=== PATIENT | female | born 1995 | race Caucasian/White ===

== ENCOUNTER 2019-02-23 01:26 | Inpatient (IN) ==
[2019-02-23] MEDS ORDERED: Haloperidol Lactate 5 MG/ML VIAL IM PRN (01:37)
[2019-02-23] MEDS ORDERED: MOM Conc 10 ML UD.LIQ PO PRN (01:37)
[2019-02-23] MEDS ORDERED: Mag Hydrox/Al Hydrox/Simeth 30 ML UDC PO PRN (01:37)
[2019-02-23] MEDS ORDERED: hydrOXYzine pamoate 25 MG CAPSULE PO PRN (01:37)
[2019-02-23] MEDS ORDERED: traZODone 50 MG TABLET PO PRN (01:37)
[2019-02-23] MEDS ORDERED: *HR* LORazepam 1 MG TABLET PO PRN (01:37)
[2019-02-23] MEDS ORDERED: Ibuprofen 400 MG TABLET PO PRN (01:37)
[2019-02-23] MEDS ORDERED: *HR* LORazepam 2 MG/ML VIAL IM PRN (01:37)
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
[2019-02-23] MEDS ORDERED: Preparation H Ointment 30 GM TUBE TP PRN (18:12)
[2019-02-23] MEDS: traZODone 50 MG TABLET PO SCH (21:01)
--- NOTE | 2019-02-24 10:34 | Psychiatry Progress Note ---
Date of Encounter: 02/24/19 Time of Encounter: 10:30 Subjective Interval history: Client reports feeling much better today. Attended groups yesterday and was an active participant. States she really needs to work on "self-love" and that was something she intended to focus on today. Client did say yesterday that she does not like herself very much so it is good that she is already identifying this as something to work on in her therapy groups. Mood is definitely better today. Smiling. No tearfulness. Denying SI today. Still does not have any real plan for when she leaves but client did say staff could reach out to her boyfriend's mother today. Client denies having any friends/family that could offer support beyond her boyfriend's mother. Will try and contact boyfriend's mother to determine level of support for client and her two daughters. If everything works out client could potentially be discharged tomorrow. Sleeping and eating well. Tolerating meds. Feels and looks better. Review of Systems Constitutional: Denies: fever, chills, weakness, weight change Eyes: Denies: eye pain, vision change Ears, Nose, Throat: Denies: ear pain, throat pain, dental pain, hearing loss, congestion Cardiovascular: Denies: chest pain, palpitations, dyspnea on exertion Respiratory: Denies: cough, dyspnea, wheezes Gastrointestinal: Denies: abdominal pain, nausea, vomiting, diarrhea, constipation Musculoskeletal: Denies: joint swelling, joint pain Neurological: Denies: headache, weakness, numbness, memory loss Results - Vital Signs Vital Signs: Temp Pulse Resp BP Pulse Ox 98.2 F 76 16 119/78 100 02/24/19 09:00 02/24/19 09:00 02/24/19 09:00 02/24/19 09:00 02/24/19 09:00 Assessment and Plan (1) Major depress dis, severe Current visit: Yes Status: Acute Plan: Continue hospitalization, Close observation, Suicide Precautions per unit protocol, Encourage participation in unit milieu, Group Therapy, Monitor sleep, Monitor appetite Risks, benefits, side effects, alternatives discussed w/pt: Yes Patient agreeable to treatment: Yes (2) Generalized anxiety disorder Current visit: Yes Status: Acute Plan: Continue hospitalization, Close observation, Suicide Precautions per unit protocol, Encourage participation in unit milieu, Group Therapy, Monitor sleep, Monitor appetite Risks, benefits, side effects, alternatives discussed w/pt: Yes Patient agreeable to treatment: Yes Consult Discharge Plan - Plan Referrals: NONE,PCP [Primary Care Provider] - Psychiatry Exam - Constitutional Vitals: Temp Pulse Resp BP Pulse Ox 98.2 F 76 16 119/78 100 02/24/19 09:00 02/24/19 09:00 02/24/19 09:00 02/24/19 09:00 02/24/19 09:00 General appearance: age & developmentally appropriate, well-groomed, well- nourished - Musculoskeletal Gait: normal Station: relaxed Strength & Tone: normal for patient - Psychiatric Patient Orientation: Yes Person, Yes Time, Yes Place Level of alertness: Alert Behavior: calm, cooperative Psychomotor activity: Normal Eye Contact: Maintains Eye Contact Mood Description: Depressed, Anxious Affect description: full range Speech Volume: Normal Speech pattern: normal rate, normal rhythm, normal tone, fluent, spontaneous Language & Vocabulary: consistent with education Thought Process: Linear Thought Content: No Suicidal ideation, No Homicidal ideation, No Overt delusions Perceptual Disturbances: No Auditory hallucinations, No Visual hallucinations Attention Span Ability: Capable of Focused Attention Memory Description: Grossly Intact Patient Reliability: Reliable Historian Fund of knowledge: Yes abstraction ability, Yes aware of current events Intelligence Estimate: Average Judgment: Fair Insight: Partial
[2019-02-24] MEDS: traZODone 50 MG TABLET PO SCH (20:55)
[2019-02-25 08:59] VITALS: BP 117/78
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
== END 2019-02-25 14:40 | disposition home or self-care (01) | DRG 751 ==
LOC: 1ANU 01:26
PROVIDERS: ADMIT Psychiatry & Neurology Psychiatry; ATTEND Psychiatry & Neurology Psychiatry